=== PATIENT | male | born 1960 | race Asian ===

== ENCOUNTER → 2017-09-15 | Outpatient (CLI) | payer OTHER ==
[~2017-09-15] MED LIST: GADAVIST IV PRN; OMEP40CA PO
--- NOTE | 2017-09-15 11:10 | DIAGNOSTIC IMAGING REPORT ---
(RENAL)RETROPERITON COMP CLINICAL HISTORY: 57 years-old Male presenting with N28.1 Renal cyst, acquiredno latex [id number]. TECHNIQUE: Real-time grayscale and limited color Doppler ultrasound imaging of the kidneys and bladder was performed. COMPARISON: CT from 01/10/2015. FINDINGS: Right kidney: Normal echogenicity of renal parenchyma. Right kidney measures 10.2 cm. No hydronephrosis. Anechoic lesion consistent with cyst noted in the interpolar region measuring 1.5 cm, previous 0.8 cm in 2015. This is avascular and simple appearing. Normal perfusion. Left kidney: Normal echogenicity of renal parenchyma. Left kidney measures 10.6 cm. No hydronephrosis. No convincing evidence of calculus or mass. Normal perfusion. Bladder: No bladder wall thickening. Bilateral ureteral jets visualized. Other: Prominent prostate. IMPRESSION: 1. Simple right renal cyst. Slight interval growth since 2015 is within the range of what is expected for renal cyst. 2. No hydronephrosis. 3. Possible prostatomegaly. Electronically signed by: Neal Akins M.D. 09/15/2017 11:08 AM Dictated Date/Time: 09/15/2017 11:06 AM
--- NOTE | 2017-09-15 15:26 | DIAGNOSTIC IMAGING REPORT ---
PROSTATE MRI COMBO CLINICAL HISTORY: Elevated PSA. TECHNIQUE: Multisequence, multiplanar MR imaging of the prostate was performed before and after the administration of intravenous contrast of 6.5 cc of Gadavist. Additional postprocessing was performed on a separate [employer] workstation by the radiologist for 3-D volumetric segmentation of the prostate and contouring of region(s) of interest (SUSANNA) for targeting. COMPARISON: CT of the abdomen and pelvis January 10, 2015 and MRI of the prostate September 19, 2015. FINDINGS: Prostate: The prostate measures 4.2 x 3.7 x 3.6 cm cm (DynaCAD prostate boundary segmentation volume mL). Mild changes of benign prostatic hyperplasia. Precontrast T1 weighted imaging demonstrates no evidence of intrinsic T1 hyperintensity to suggest hemorrhage. No suspicious lesions are identified within the prostate gland. A 9 mm T2 hypointense band-like focus within the right posterior lateral aspect of the peripheral zone within the mid gland shown on axial T2-weighted sequence image 24of [id number] is similar to MRI of September 19, 2015. This has mildly diminished signal on the ADC sequence but no increased signal intensity on the diffusion-weighted sequence. This suggests scarring. No areas of significant restricted diffusion are identified within the prostate. Seminal vesicles normal. Bladder: Normal. Bowel: Visualized portion of the rectum normal. Peritoneum: No free fluid in the pelvis. Lymph nodes: No lymphadenopathy in the visualized portion of the pelvis. Vasculature: Iliac vessels patent. Abdominal wall: Normal. Osseous structures: Normal bone marrow signal intensity. IMPRESSION: 1. No suspicious lesions within the prostate gland. 9 mm T2 hypointense band-like focus within the right posterior lateral aspect of the peripheral zone, as described above. This is unchanged since prior MRI and the appearance favors scarring and may be related to the sequela of prostatitis or biopsy. This is considered a PI-RADS 2 study: Clinically significant cancer is unlikely to be present. 2. Mild benign prostatic hyperplasia. Electronically signed by: Wallace Mario M.D. 09/15/2017 3:25 PM Dictated Date/Time: 09/15/2017 12:13 PM
== END | disposition home or self-care (01) ==
LOC: C.ULTRBC 09:56
PROVIDERS: ATTEND Urology
DX: N28.1 Cyst of kidney, acquired (principal); R97.20 Elevated prostate specific antigen [PSA]; R93.8 Abnormal findings on diagnostic imaging of other specified body structures